=== PATIENT | female | born 1975 | race Hispanic/Latino ===

== ENCOUNTER 2021-03-03 02:31 | Emergency (ER) | payer SELFPAY ==
[2021-03-03 02:47] LABS: APPEARANCE,URINE Turbid (CLEAR); BILIRUBIN,URINE Negative (NEGATIVE); COLOR,URINE Yellow (YELLOW); GLUCOSE, URINE (UA) Negative (NEGATIVE); KETONES,URINE >=160 mg/dL (NEGATIVE); LEUKOCYTE ESTERASE ,URINE Moderate (NEGATIVE); NITRATE,URINE Negative (NEGATIVE); OCCULT BLOOD,URINE Negative (NEGATIVE); PH,URINE 5.5 (5.0-8.0); PROTEIN,URINE POS 1+ mg/dL (NEGATIVE)
[2021-03-03 03:00] LABS: BACTERIA,URINE Moderate /HPF (None Seen); RBC,URINE None Seen /HPF (0-1); SQUAMOUS EPITHELIAL CELL,UR Many /HPF (0-2)
[2021-03-03 03:38] LABS: CREATININE 0.7 mg/dL (0.5-1.5); POTASSIUM 3.6 mmol/L (3.5-5.1)
== END 2021-03-03 03:55 | disposition home or self-care (01) ==
LOC: EDH 02:31
DX: F43.23 Adjustment disorder with mixed anxiety and depressed mood (principal); R07.89 Other chest pain; G47.00 Insomnia, unspecified
CPT/HCPCS: 36415; 80048; 81001; 84484; 87077; 87088; 87186; 93005

== ENCOUNTER 2023-12-04 21:19 | Emergency (ER) | payer OTHER, SELFPAY ==
[~2023-12-04] VITALS: Ht 157.5 cm; Wt 99.8 kg
[2023-12-04] MEDS ORDERED: IBUP-2077 PO (22:43)
[2023-12-04] MEDS: HYDROCODONE/ACETAMINOPHEN 5/325 MG TAB PO ONE (22:53)
[2023-12-04] MEDS: KETOROLAC 60 MG VIAL (30MG/ML) IM ONE (22:54)
[2023-12-04 23:05] VITALS: BP 123/76; PULSE 72; RESP 16; O2SAT 99
== END 2023-12-04 23:07 | disposition home or self-care (01) ==
LOC: EDH 21:19
DX: S93.401A Sprain of unspecified ligament of right ankle, initial encounter (principal); W10.8XXA Fall (on) (from) other stairs and steps, initial encounter; Y93.01 Activity, walking, marching and hiking; Y92.89 Other specified places as the place of occurrence of the external cause; Y99.8 Other external cause status
CPT/HCPCS: 99283; 73610 ×2; 96372; J1885